=== PATIENT | male | born 1955 | race Caucasian/White ===

== ENCOUNTER → 2020-07-23 | Outpatient (CLI) | payer BC ==
[~2020-07-23] MED LIST: COMBIVENT RESPIM4 GM INH; LIPITOR20 MG PO
== END | disposition home or self-care (01) ==
LOC: COVID19 08:03
PROVIDERS: ATTEND Surgery
DX: Z01.812 Encounter for preprocedural laboratory examination (principal); Z20.822 Contact with and (suspected) exposure to COVID-19

== ENCOUNTER → 2020-07-26 | Day surgery (SDC) | payer BC, OTHER ==
[~2020-07-26] VITALS: Ht 172.7 cm; Wt 65.8 kg
[2020-07-26 08:48] VITALS: BP 123/84
[2020-07-26 10:35] VITALS: BP 111/76
[2020-07-26 10:50] VITALS: BP 134/90
[2020-07-26 11:05] VITALS: BP 128/85
== END | disposition home or self-care (01) ==
LOC: SDC 07-22 09:30
PROVIDERS: ATTEND Surgery
DX: Z12.11 Encounter for screening for malignant neoplasm of colon (principal); K62.1 Rectal polyp; K63.5 Polyp of colon; J45.909 Unspecified asthma, uncomplicated; Z79.899 Other long term (current) drug therapy

== ENCOUNTER 2023-01-18 09:21 | Emergency (ER) | payer MEDICARE, OTHER ==
[~2023-01-18] VITALS: Wt 68.0 kg
== END 2023-01-18 11:10 | disposition home or self-care (01) ==
LOC: ED 09:21
DX: H16.002 Unspecified corneal ulcer, left eye (principal); J45.909 Unspecified asthma, uncomplicated; Z98.890 Other specified postprocedural states